=== PATIENT | female | born 2000 | race Caucasian/White ===

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

== ENCOUNTER 2021-04-13 05:14 | Emergency (ER) | payer BC ==
[~2021-04-13] VITALS: Ht 152.4 cm; Wt 58.6 kg
[~2021-04-13 05:14] MED LIST changes: +DICY20TA PO; -DICY20TA3 PO
--- NOTE | 2021-04-13 05:31 | PHYS DOC ---
Past History Past Medical History: Anxiety Past Surgical History: No Surgical History Smoking: Non-smoker, Second-hand Alcohol Use: None Drug Use: None General Adult EDM: Chief Complaint: 37 weeks with contractions HPI: HPI: 20-year-old female presents at 37 weeks gestation with concern for active labor. Patient reports she has been having contractions. Patient reports she lost her mucous plug last week and when she was recently checked she was 2 cm. Patient reports she is to deliver at [facility]. Patient reports calling her ORE FEEDER who instructed her to present to the nearest ER to be checked if she is dilated more than a 2. Patient denies any nausea or vomiting. Denies fever or chills. Denies vaginal bleeding. Review of Systems: Review of Systems: Constitutional: Denies fever or chills Eyes: Denies redness or eye pain HENT: Denies nasal congestion or sore throat Respiratory: Denies cough or shortness of breath Cardiovascular: Denies chest pain or palpitations GI: Denies abdominal pain, nausea, or vomiting /BUSINESS CENTER ATTENDANT: Denies dysuria or hematuria; reports uterine contractions at 37 weeks gestation Musculoskeletal: Denies back pain or joint pain Integument: Denies rash or skin lesions Neurologic: Denies headache, focal weakness or sensory changes Complete systems were reviewed and found to be within normal limits, except as documented in this note. Allergies: Allergies: Allergies Coded Allergies Type Severity Reaction Last Updated Verified amoxicillin Allergy Intermediate stomach cramping 08/28/20 Yes Physical Exam: PE: Constitutional: Well developed, well nourished, no acute distress, non-toxic appearance HENT: Normocephalic, atraumatic Eyes: Conjunctiva normal, no discharge Neck: Normal range of motion, no tenderness, supple Lungs & Thorax: No respiratory distress, equal chest rise and fall Abdomen: Gravid abdomen, no focal tenderness BUSINESS CENTER ATTENDANT: Resource Technician Latrice RN, no , active bleeding, or clear discharge noted Skin: Warm, dry, no erythema, no rash Extremities: No tenderness, ROM intact, no edema Neurologic: Alert and oriented X 3, no focal deficits noted Psychologic: Affect normal, judgment normal EKG: EKG: [] Radiology/Procedures: Radiology/Procedures: [] Heart Score: C/O Chest Pain: N/A Course & Med Decision Making: Course & Med Decision Making 20-year-old female in her 37th week gestation presents with report of concern for active labor. Reports she has been having contractions. Patient does not appear to have consistent contractions while in the department. Patient without . heart tones within normal limits. Patient advised we are not a labor and delivery unit nor do we have on-call ORE FEEDER and she would need to present directly to facility associated with her ORE FEEDER for further care and management. Patient offered to have ambulance called for transportation, however patient and family member with decision to transfer by private vehicle. Patient stable for discharge with close follow-up with labor and delivery to have further evaluation. Discussed findings and plan with patient, who acknowledges understanding and agreement. Dwight Disclaimer: Dragmargaux Disclaimer: This electronic medical record was generated, in whole or in part, using a voice recognition dictation system. Departure Departure: Impression: Primary Impression: Uterine contractions during Disposition: 01 HOME / SELF CARE / HOMELESS Condition: STABLE Referrals: ELIO MAHARAJ (PCP) Patient Instructions: Abdominal Pain During , [id number] Additional Instructions: There is concern you are having uterine contractions at 37 weeks. You are not currently . Please present yourself directly to a labor and delivery center. [facility] does NOT have labor and delivery nor do we have a on- call ORE FEEDER. You were offered transportation by ambulance however you have elected to leave by private vehicle. Please present directly to your OB's affiliated labor and delivery center. SAMI ALEX DO Apr 13, 2021 05:31
[2021-04-13 05:39] VITALS: BP 111/80
== END 2021-04-13 05:39 | disposition home or self-care (01) ==
LOC: ER 05:14
DX: O62.9 Abnormality of forces of labor, unspecified (principal); Z3A.37 37 weeks gestation of pregnancy; Z88.1 Allergy status to other antibiotic agents
CPT/HCPCS: 99281